=== PATIENT | male | born 1975 | race Caucasian/White ===

== ENCOUNTER → 2020-03-09 | Outpatient (CLI) | payer BC ==
[2020-03-09 15:13] LABS: HEMATOCRIT 53.1 % (42.0-52.0); HEMOGLOBIN 18.3 g/dL (13.5-18.0)
== END ==
LOC: LAB 15:00
PROVIDERS: Internal Medicine Medical Oncology
DX: D75.1 Secondary polycythemia (principal)

== ENCOUNTER → 2020-05-06 | Outpatient (CLI) | payer BC ==
[2020-05-06 12:29] LABS: HEMATOCRIT 53.7 % (42.0-52.0); HEMOGLOBIN 18.4 g/dL (13.5-18.0)
== END ==
LOC: LAB 12:08
PROVIDERS: Internal Medicine Medical Oncology
DX: D75.1 Secondary polycythemia (principal)

== ENCOUNTER → 2020-05-11 | Outpatient (CLI) | payer BC ==
[2020-05-11 12:34] LABS: HEMATOCRIT 49.6 % (42.0-52.0); HEMOGLOBIN 17.1 g/dL (13.5-18.0)
== END ==
LOC: LAB 12:14
PROVIDERS: Internal Medicine Medical Oncology
DX: D75.1 Secondary polycythemia (principal)